=== PATIENT | male | born 2000 | race Caucasian/White ===

== ENCOUNTER 2023-08-23 13:50 | Emergency (ER) | payer SELFPAY ==
[2023-08-23] MEDS ORDERED: ONDANSETRON 4 MG (ODT) TAB ONE (14:57)
--- NOTE | 2023-08-23 18:16 | EDPHYS ---
Physician Documentation [facility] Name: Marvin Briscoe Age: 22 yrs Sex: Male : 2000 Arrival Date: 08/23/2023 Time: 13:50 Bed DX4 Private MD: ED Physician Lakhwinder Mcneil HPI: 08/23 14:15 This 22 yrs old Male presents to ER via Ambulatory with complaints of Vomiting.cp 14:15 The patient presents to the emergency department with nausea, with "dry heaves", cp vomiting, that is continuous. Onset: The symptoms/episode began/occurred today. Possible causes: patient reports consuming several types of alcohol last night. Associated signs and symptoms: Pertinent positives: abdominal pain, fever, Pertinent negatives: constipation, diarrhea, GI bleeding. Severity of symptoms: in the emergency department the symptoms are unchanged despite home interventions. Historical: - Allergies: 14:42 No Known Allergies; cm10 - Home Meds: 14:42 None [Active]; cm10 - PMHx: 14:42 Irritable bowel syndrome; cm10 - Immunization history:: Adult Immunizations unknown. - Social history:: Smoking status: Patient reports the use of cigarette tobacco products, denies chronic smoking, but will smoke occasionally, Reported history of juuling and/or vaping. ROS: 14:20 Constitutional: Negative for body aches, chills, fever, cp 14:20 Eyes: Negative for injury, pain, redness, and discharge, cp 14:20 ENT: Negative for drainage from ear(s), ear pain, sore throat, difficulty swallowing, difficulty handling secretions, 14:20 Cardiovascular: Negative for chest pain, 14:20 Respiratory: Negative for cough, shortness of breath, wheezing, 14:20 Abdomen/GI: Positive for abdominal pain, nausea and vomiting, Negative for diarrhea, constipation, hematemesis, 14:20 Neuro: Negative for altered mental status, headache, weakness, 14:20 All other systems are negative, Exam: 14:25 Constitutional: The patient appears in no acute distress, alert, awake, comfortable, cp non-toxic, well developed, well nourished, 14:25 Head/Face: Normocephalic, atraumatic. cp 14:25 Eyes: Periorbital structures: appear normal, Conjunctiva: normal, no exudate, no injection, Sclera: no appreciated abnormality, Lids and lashes: appear normal, bilaterally, 14:25 ENT: External ear(s): are unremarkable, Nose: is normal, Mouth: Lips: moist, Oral mucosa: pink and intact, moist, Posterior pharynx: Airway: no evidence of obstruction, patent, 14:25 Chest/axilla: Inspection: normal, 14:25 Cardiovascular: Rate: bradycardic, Rhythm: regular, 14:25 Respiratory: the patient does not display signs of respiratory distress, Respirations: normal, no use of accessory muscles, no retractions, labored breathing, is not present, Breath sounds: are clear throughout, no decreased breath sounds, no stridor, no wheezing, 14:25 Abdomen/GI: Inspection: abdomen appears normal, Palpation: soft, in all quadrants, nontender, in all quadrants, 14:25 Back: pain, is absent, ROM is normal, Vital Signs: 14:41 BP 132 / 76; Pulse 56; Resp 18; Temp 97.1; Pulse Ox 100% on R/A; Weight 60.33 kg; cm10 Height 5 ft. 8 in. ; Pain 6/10; 14:41 Body Mass Index 20.22 (60.33 kg, 172.72 cm) cm10 14:41 Pain Scale: Adult cm10 MDM: 14:47 Patient medically screened. cp 15:00 Differential diagnosis: gastritis, cholecystitis, pancreatitis, appendicitis, viral cp gastroenteritis, gastroenteritis. 18:15 Data reviewed: vital signs, nurses notes. cp 18:15 I considered the following discharge prescriptions or medication management in the emergency department Medications were administered in the Emergency Department. See MAR. Counseling: I had a detailed discussion with the patient and/or guardian regarding the historical points, exam findings, and any diagnostic results supporting the discharge/admit diagnosis, to return to the emergency department if symptoms worsen or persist or if there are any questions or concerns that arise at home. Response to treatment: the patient's symptoms have markedly improved after treatment, nausea improved and vomiting resolved. Patient tolerating po fluids, and as a result, I will discharge patient. 08/23 17:25 Order name: PO challenge; Complete Time: 18:44 cp Administered Medications: 14:44 Drug: Ondansetron Oral Disintegrating Tablet Oral Disintegrating Tablet 4 mg PO once cm10 Route: PO; 18:44 Follow up: Response: No adverse reaction cm10 Disposition Summary: 08/23/23 18:16 Discharge Ordered Notes: Location: Home cp Problem: new cp Symptoms: have improved cp Condition: Stable cp Diagnosis - Nausea with vomiting, unspecified cp Followup: cp - With: Emergency Department - When: As needed - Reason: Worsening of condition Discharge Instructions: - Discharge Summary Sheet cp - Nausea and Vomiting, Adult cp - Form - Excuse from Work, School, or Physical Activity cp Forms: - Medication Reconciliation Form cp - Thank You Letter cp - Antibiotic Education cp - Prescription Opioid Use cp - Patient Portal Instructions cp - Leadership Thank You Letter cp Prescriptions: - Zofran 4 mg Oral Tablet - take 1 tablet ORAL route every 12 hours As needed; 20 tablet; Refills: 0, cp Product Selection Permitted Signatures: Adrian Barksdale PA PA cp Martinez, Clarissa, RN RN cm10
--- NOTE | 2023-08-23 18:16 | ER ---
Nurse's Notes [facility] Name: Marvin Briscoe Age: 22 yrs Sex: Male : 2000 Arrival Date: 08/23/2023 Time: 13:50 Bed DX4 Private MD: Diagnosis: Nausea with vomiting, unspecified Presentation: 08/23 14:41 Chief complaint: Patient states: "I drank too much last night and this morning I cm10 started throwing up.". Coronavirus screen: Vaccine status: Patient reports being unvaccinated. Client denies travel out of the [place] in the last 14 days. Ebola Screen: Patient denies travel to an Ebola-affected area in the 21 days before illness onset. No symptoms or risks identified at this time. Initial Sepsis Screen: Does the patient meet any 2 criteria? No. Patient's initial sepsis screen is negative. Does the patient have a suspected source of infection? No. Patient's initial sepsis screen is negative. Risk Assessment: Do you want to hurt yourself or someone else? Patient reports no desire to harm self or others. Onset of symptoms was August 23, 2023. 14:41 Method Of Arrival: Ambulatory cm10 14:41 Acuity: ALEXANDRA 3 cm10 Triage Assessment: 14:45 General: Appears in no apparent distress. comfortable, Behavior is calm, cooperative. cm10 Pain: Denies pain. GI: Reports vomiting. 14:45 Neuro: No deficits noted. Level of Consciousness is awake, alert, obeys commands, cm10 Oriented to person, place, time, situation. Historical: - Allergies: 14:42 No Known Allergies; cm10 - Home Meds: 14:42 None [Active]; cm10 - PMHx: 14:42 Irritable bowel syndrome; cm10 - Immunization history:: Adult Immunizations unknown. - Social history:: Smoking status: Patient reports the use of cigarette tobacco products, denies chronic smoking, but will smoke occasionally, Reported history of juuling and/or vaping. Screenin:46 [facility] ED Fall Risk Assessment (Adult) History of falling in the last 3 months, cm10 including since admission No falls in past 3 months (0 pts) Confusion or Disorientation No (0 pts) Intoxicated or Sedated No (0 pts) Impaired Gait No (0 pts) Mobility Assist Device Used No (0 pt) Altered Elimination No (0 pt) Score/Fall Risk Level 0 - 2 = Low Risk Oriented to surroundings, Maintained a safe environment. Abuse screen: Denies threats or abuse. Denies injuries from another. Nutritional screening: No deficits noted. Tuberculosis screening: No symptoms or risk factors identified. Vital Signs: 14:41 BP 132 / 76; Pulse 56; Resp 18; Temp 97.1; Pulse Ox 100% on R/A; Weight 60.33 kg; cm10 Height 5 ft. 8 in. ; Pain 6/10; 14:41 Body Mass Index 20.22 (60.33 kg, 172.72 cm) cm10 14:41 Pain Scale: Adult cm10 ED Course: 13:52 Patient arrived in ED. as 13:53 Adrian Barksdale PA is PHCP. cp 13:53 Lakhwinder Mcneil MD is Attending Physician. cp 14:42 Triage completed. cm10 14:42 Arm band placed on Patient placed in waiting room. cm10 18:46 Patient has correct armband on for positive identification. Provided Education on: cm10 follow- up. 18:46 No provider procedures requiring assistance completed. Patient did not have IV access cm10 during this emergency room visit. Administered Medications: 14:44 Drug: Ondansetron Oral Disintegrating Tablet Oral Disintegrating Tablet 4 mg PO once cm10 Route: PO; 18:44 Follow up: Response: No adverse reaction cm10 Medication: 18:47 VIS not applicable for this client. cm10 Outcome: 18:16 Discharge ordered by MD. cp 18:46 Discharged to home ambulatory, with family, cm10 18:46 Condition: good 18:46 Discharge instructions given to patient, Instructed on discharge instructions, follow up and referral plans. medication usage, Demonstrated understanding of instructions, follow-up care, medications, Prescriptions given X 1, 18:47 Patient left the ED. cm10 Signatures: Jody Trammell Corey, PA PA cp Love Trammell RN RN cm10 Corrections: (The following items were deleted from the chart) 18:45 14:45 GI: Reports cm10 cm10 18:45 18:44 Neuro: No deficits noted. Level of Consciousness is awake, alert, obeys commands, cm10 Oriented to person, place, time, situation, cm10
[2023-08-23 20:33] VITALS: BP 132/76; TEMP 97.1; O2SAT 100
== END 2023-08-23 18:47 | disposition home or self-care (01) ==
LOC: ER 13:50
DX: R11.2 Nausea with vomiting, unspecified (principal); R50.9 Fever, unspecified
CPT/HCPCS: 99283; Q0162